=== PATIENT | male | born 1965 | race African-American/Black ===

== ENCOUNTER 2022-11-05 18:20 | Inpatient (IN) | payer OTHER ==
[~2022-11-05 18:20] MED LIST: Iopamidol-370 76% 500 ML MDV (1 ML CHARGE) ONE
[2022-11-05 18:37] LABS: #Eosinphils 0.1 thou/uL (0.0-0.7); #Neutrophils 5.3 thou/uL (1.40-6.50); %Basophils 0.4 % (0.0-1.0); %Eosinophils 0.6 % (0.0-10.0); %Lymphocytes 36.7 % (21.0-51.0); %Neutrophils 51.9 % (42.0-75.0); Hematocrit 43.4 % (42.0-52.0); Hemoglobin 13.3 g/dL (14.0-18.0); Mean Corpuscular HGB CONC 30.6 g/dL (32.0-36.0); Mean Corpuscular Hemoglobin 28.1 pg (27.0-31.0); Mean Corpuscular Volume 91.6 fl (78.0-98.0); Mean Platelet Volume 9.7 fL (7.4-10.4); Platelet Count 306 10x3/uL (130-400); RBC Distribution Width 12.9 % (11.5-14.5); Red Blood Cell (RBC) Count 4.74 mill/uL (4.70-6.10); White Blood Cell (WBC) Count 10.1 10x3/uL (4.8-10.8)
[2022-11-05] MEDS ORDERED: fentaNYL 50 mcg/mL 1 mL Vial ONE ×2 (18:39→20:19)
[2022-11-05 18:51] LABS: INR-International Normal Ratio 1.1; PTT 24.6 sec (22.9-36.1); Prothrombin Time 14.2 sec (12.0-14.7)
[2022-11-05 18:58] LABS: ALT (SGPT) 16 U/L (8-55); AST (SGOT) 25 U/L (5-34); Albumin 3.6 g/dL (3.5-5.0); Alcohol Less than 10.0 mg/dL (Less than 10); Alkaline Phosphatase 61 U/L (40-110); Anion Gap 12 mmol/L (10-20); BUN (Urea Nitrogen) 11 mg/dL (8.4-25.7); Bilirubin, Total 0.7 mg/dL (0.2-1.2); Calc. Creatinine Clearance 0 mL/min (70-130); Calcium 8.8 mg/dL (7.8-10.44); Carbon Dioxide 19 mmol/L (22-29); Chloride 107 mmol/L (98-107); Estimated GFR 93; Globulin 2.6 g/dL (2.4-3.5); Glucose 104 mg/dL (70-105); Lipase 39 U/L (8-78); Potassium 3.4 mmol/L (3.5-5.1); Protein, Total 6.2 g/dL (6.0-8.3); Sodium 135 mmol/L (136-145)
[2022-11-05] MEDS ORDERED: Boostrix 0.5 ML (Tdap) VIAL (>/=7 yrs of age) ONE (19:03)
[2022-11-05] MEDS ORDERED: Ondansetron PF 4 MG/2 ML Vial ONE (19:03)
[2022-11-05] MEDS ORDERED: CEFAZOLIN 2 GM VIAL ONE (19:03)
[2022-11-05] MEDS ORDERED: Ipratropium/Albuterol 3 ML NEB NEB PRN (20:21)
[2022-11-05] MEDS ORDERED: traMADol HCl 50 MG TAB PO PRN (20:23)
[2022-11-05] MEDS ORDERED: Magnesium 2 GM/50 ML(in water) 2 GM in Premix Bag 1 BAG IVPB SCH (21:00)
[2022-11-05] MEDS: Potassium Chloride 20 MEQ in Premix Bag 1 BAG IVPB SCH (22:49)
[2022-11-05] MEDS: Sodium Chloride 0.9% 1,000 ML IV SCH (22:49)
[2022-11-05] MEDS: Cyclobenzaprine 10 MG TAB PO PRN (22:56)
[2022-11-05] MEDS: Gabapentin 300 MG CAP PO SCH (22:57)
[2022-11-05] MEDS: Famotidine 20 MG TAB PO SCH (22:57)
[2022-11-05 23:45] VITALS: BMI 20.2
[2022-11-06] MEDS: Morphine 2 MG/ML VIAL SLOW IVP PRN ×3 (00:17→20:57)
[2022-11-06] MEDS: Acetaminophen 500 MG TAB PO SCH ×5 (01:07→23:33)
[2022-11-06] MEDS: Potassium Chloride 20 MEQ in Premix Bag 1 BAG IVPB SCH (01:08)
[2022-11-06] MEDS: traMADol HCl 50 MG TAB PO SCH ×5 (01:08→23:33)
[2022-11-06] MEDS: CEFAZOLIN 2 GM in Sodium Chloride 0.9% 100 ML IVPB SCH ×3 (03:26→20:38)
[2022-11-06] MEDS: Sodium Chloride 0.9% 1,000 ML IV SCH ×3 (05:36→22:23)
[2022-11-06 06:23] LABS: #Monocytes 1.2 thou/uL (0.11-0.59); #Neutrophils 10.4 thou/uL (1.40-6.50); %Basophils 0.1 % (0.0-1.0); %Monocytes 9.1 % (0.0-10.0); %Neutrophils 78.4 % (42.0-75.0); Hematocrit 40.1 % (42.0-52.0); Hemoglobin 12.6 g/dL (14.0-18.0); Mean Corpuscular HGB CONC 31.4 g/dL (32.0-36.0); Mean Corpuscular Hemoglobin 27.9 pg (27.0-31.0); Platelet Count 276 10x3/uL (130-400); RBC Distribution Width 13.2 % (11.5-14.5); Red Blood Cell (RBC) Count 4.52 mill/uL (4.70-6.10); White Blood Cell (WBC) Count 13.3 10x3/uL (4.8-10.8)
[2022-11-06 06:35] LABS: INR-International Normal Ratio 1.1; PTT 26.3 sec (22.9-36.1); Prothrombin Time 14.1 sec (12.0-14.7)
[2022-11-06 06:48] LABS: Mean Corpuscular Volume 88.7 fl (78.0-98.0); Phosphorus 3.1 mg/dL (2.3-4.7)
[2022-11-06 06:49] LABS: Anion Gap 12 mmol/L (10-20); BUN (Urea Nitrogen) 10 mg/dL (8.4-25.7); Calc. Creatinine Clearance 83 mL/min (70-130); Calcium 8.5 mg/dL (7.8-10.44); Carbon Dioxide 23 mmol/L (22-29); Chloride 103 mmol/L (98-107); Estimated GFR 104; Glucose 131 mg/dL (70-105); Magnesium 2.3 mg/dL (1.6-2.6); Potassium 4.9 mmol/L (3.5-5.1); Sodium 133 mmol/L (136-145)
[2022-11-06] MEDS: Famotidine 20 MG TAB PO SCH ×2 (09:57→20:58)
[2022-11-06] MEDS: Gabapentin 300 MG CAP PO SCH ×3 (09:58→20:58)
[2022-11-06] MEDS ORDERED: fentaNYL PF 100 MCG/2 ML SYRINGE ONE (16:38)
[2022-11-06] MEDS ORDERED: HYDROmorphone 0.5 MG/0.5 ML SYRINGE ONE (16:38)
[2022-11-06] MEDS ORDERED: Ondansetron PF 4 MG/2 ML Vial ONE (16:57)
[2022-11-06] MEDS ORDERED: ePHEDrine Sulfate 50 MG/10 ML VIAL ONE (16:57)
[2022-11-06] MEDS ORDERED: Dexamethasone 20 MG/5 ML VIAL ONE (16:57)
[2022-11-06] MEDS ORDERED: Lidocaine 1% PF 5 ML VIAL ONE (16:57)
[2022-11-06] MEDS ORDERED: PROPOFOL 200 MG/20 ML VIAL ONE (16:57)
[2022-11-06] MEDS ORDERED: fentaNYL 50 mcg/mL 1 mL Vial ONE ×3 (18:29→18:45)
[2022-11-06] MEDS: Cyclobenzaprine 10 MG TAB PO PRN (20:58)
[2022-11-07] MEDS: Sodium Chloride 0.9% 1,000 ML IV SCH ×2 (03:35→18:17)
[2022-11-07] MEDS: CEFAZOLIN 2 GM in Sodium Chloride 0.9% 100 ML IVPB SCH ×3 (03:38→20:40)
[2022-11-07] MEDS: Acetaminophen 500 MG TAB PO SCH ×4 (06:13→23:43)
[2022-11-07] MEDS: traMADol HCl 50 MG TAB PO SCH ×4 (06:13→23:43)
[2022-11-07] MEDS: Famotidine 20 MG TAB PO SCH ×2 (09:32→20:40)
[2022-11-07] MEDS: Gabapentin 300 MG CAP PO SCH ×3 (09:32→20:40)
[2022-11-08] MEDS: CEFAZOLIN 2 GM in Sodium Chloride 0.9% 100 ML IVPB SCH (04:56)
[2022-11-08] MEDS: Acetaminophen 500 MG TAB PO SCH ×2 (05:46→12:04)
[2022-11-08] MEDS: traMADol HCl 50 MG TAB PO SCH ×2 (05:47→12:05)
[2022-11-08] MEDS: Gabapentin 300 MG CAP PO SCH ×2 (09:02→14:58)
[2022-11-08 12:00] VITALS: BP 133/81; TEMP 99
== END 2022-11-08 16:28 | disposition home or self-care (01) | DRG 958 ==
LOC: ERS 18:20 → SURG A 19:42
PROVIDERS: ADMIT Specialist; ATTEND Specialist
PROC: 0LQR0ZZ Repair Left Knee Tendon, Open Approach (ICD-10-PCS; principal; 2022-11-06)
DX: S82.001B Unspecified fracture of right patella, initial encounter for open fracture type I or II (principal); S72.421 Displaced fracture of lateral condyle of right femur; S02.81XB Fracture of other specified skull and facial bones, right side, initial encounter for open fracture; S27.0XXA Traumatic pneumothorax, initial encounter; S22.41XA Multiple fractures of ribs, right side, initial encounter for closed fracture; S22.038A Other fracture of third thoracic vertebra, initial encounter for closed fracture; S36.81XA Injury of peritoneum, initial encounter; V89.2XXA Person injured in unspecified motor-vehicle accident, traffic, initial encounter; Y92.89 Other specified places as the place of occurrence of the external cause
CPT/HCPCS: 36415; 70450; 71045; 71260; 72125; 74177; 80048; 80053; 80307; 83690; 83735; 84100; 85025; 85610; 85730; 86850; 86900; 86901; 90471; 90715; 93005; 96365; 96375; 96376; G0390; J1100; J1170; J2272; J2405; J2704; J3010; J3475; J3480; J3490; J7050; Q9967